=== PATIENT | female | born 1980 | race Caucasian/White ===

== ENCOUNTER 2016-11-02 21:02 | Emergency (ER) | payer BC ==
[~2016-11-02] VITALS: Ht 170.2 cm; Wt 66.7 kg
--- NOTE | 2016-11-02 21:24 | NUR ---
ambulatory w/ steady gait, here for substernal cp, nonradiating x couple days, denies any trauma, no sob. AOx4 afebrile w/ resp even & unlabored, no acute distress noted. PA at bedside for further eval.
--- NOTE | 2016-11-02 21:37 | NUR ---
CXR at bedside.
--- NOTE | 2016-11-02 21:43 | NUR ---
biological technician at bedside for blood draw.
[2016-11-02 21:50] LABS: BASOPHILS # (AUTO) 0.1 /CMM (0.0-0.2); BASOPHILS % (AUTO) 0.6 % (0.0-2.0); EOSINOPHILS # (AUTO) 0.2 /CMM (0.0-0.7); EOSINOPHILS % (AUTO) 2.2 % (0.0-6.0); HEMATOCRIT 39 % (33-45); HEMOGLOBIN 13.7 g/dL (11.5-14.8); LYMPHOCYTES # (AUTO) 3.2 /CMM (0.8-4.8); LYMPHOCYTES % (AUTO) 32.5 % (20.0-44.0); MEAN CORPUSCULAR HEMOGLOBIN 33 PG (26.0-33.0); MEAN CORPUSCULAR HGB CONC 35 g/dl (31.0-36.0); MEAN CORPUSCULAR VOLUME 93 fL (82-100); MONOCYTES # (AUTO) 0.7 /CMM (0.1-1.30); MONOCYTES % (AUTO) 6.9 % (2.0-12.0); NEUTROPHILS # (AUTO) 5.8 /CMM (1.8-8.9); NEUTROPHILS % (AUTO) 57.8 % (43.0-81.0); PLATELET COUNT (AUTO) 294 /CMM (150-450); RDW COEFFICIENT OF VARIATION 12.3 (11.5-15.0); RED BLOOD CELL COUNT(AUTO) 4.19 MIL/uL (4.0-5.2)
[2016-11-02] MEDS ORDERED: ACETAMINOPHEN ES 500 MG TABLET ONE (21:55)
[2016-11-02] MEDS ORDERED: ACETAMINOPHEN ES 500 MG TABLET PO ONE (22:00)
[2016-11-02 22:02] LABS: CALCIUM, SERUM 8.6 mg/dL (8.5-10.1); CARBON DIOXIDE 28 mmol/L (21-32); CHLORIDE 102 mmol/L (98-107); GLUCOSE 99 mg/dL (74-106); SODIUM SERUM 135 mmol/L (136-145); UREA NITROGEN, BLOOD 21 mg/dL (7-18)
[2016-11-02 22:05] LABS: INR 1.05 (0.87-1.13); PROTHROMBIN TIME 10.9 SECS (9.5-12.7)
[2016-11-02 22:10] LABS: TROPONIN I < 0.017 ng/mL (0.00-0.056)
--- NOTE | 2016-11-02 22:16 | NUR ---
pt sitting up in bed w/ resp even & unlabored, texting on cellphone w/ no acute distress noted. Awaiting test results.
--- NOTE | 2016-11-02 23:07 | NUR ---
Patient discharged to home in stable condition. Written and verbal after care instructions given. Patient verbalizes understanding of instruction.
[2016-11-02 23:09] VITALS: BP 121/74
== END 2016-11-02 23:10 | disposition home or self-care (01) ==
LOC: ER 21:07
DX: R07.89 Other chest pain (principal)
CPT/HCPCS: 36415; 71010; 80048; 84443; 84484; 85025; 85730; 93005; 99285; A4606; Z7610